=== PATIENT | female | born 1950 | race Caucasian/White ===

== ENCOUNTER 2017-12-27 19:00 | Outpatient (CLI) | payer MEDICARE, BC | END 2017-12-27 23:59 | disposition home or self-care (01) | LOC: D.MAMMO 19:00 | DX: Z12.31 Encounter for screening mammogram for malignant neoplasm of breast (principal) ==

== ENCOUNTER → 2018-02-22 19:58 | Outpatient (CLI) | payer MEDICARE, BC | END | disposition home or self-care (01) | LOC: D.MAMMO 10:00 | DX: R92.8 Other abnormal and inconclusive findings on diagnostic imaging of breast (principal) ==

== ENCOUNTER 2019-11-09 16:19 | Inpatient (IN) | payer MEDICARE, BC ==
[~2019-11-09] VITALS: Ht 157.5 cm; Wt 64.4 kg
[2019-11-28] MEDS ORDERED: LIPITOR20 MG PO (11:23)
[2019-11-28] MEDS ORDERED: tumeric PO (11:24)
[2019-11-28] MEDS ORDERED: VITAMIN D3 PO (11:25)
[2019-11-28] MEDS ORDERED: LUTEIN20 MG PO (11:25)
[2019-11-28] MEDS ORDERED: ASCORBIC ACID500 MG PO (11:25)
[2019-11-28] MEDS ORDERED: GLUCOSAMINE HC500 MG PO (11:37)
[2019-11-28] MEDS ORDERED: CHONDROITIN PO (11:41)
[2019-11-29 09:53] LABS: BILIRUBIN NEGATIVE (NEGATIVE); KETONE NEGATIVE (NEGATIVE); NITRITE NEGATIVE (NEGATIVE); UROBILINOGEN NORMAL (NORMAL)
[2019-11-29 09:54] LABS: EOSINOPHILS 2.4 % (0-7); HEMATOCRIT 36.4 % (36.0-48.0); HEMOGLOBIN 12.3 g/dL (12-16); LYMPHOCYTES 37.9 % (15-50); MCH 32.5 pg (26.0-34.0); MCHC 33.8 g/dL (31.0-37.0); MONOCYTES 11.5 % (2-11); NEUTROPHILS 47.2 % (40-80); PLATELET COUNT 259 10x3/uL (130-400); RBC 3.79 10x6/uL (4.00-5.40); RDW 12.1 % (11.5-14.5); WBC 5.9 10x3/uL (4.8-10.8)
[2019-11-29 09:55] LABS: INR 0.98 (0.85-1.17)
[2019-11-29 10:10] LABS: CALC OSMOLALITY 276 mosm/kg (275-300); CARBON DIOXIDE 27.6 mmol/L (21.0-32.0); CHLORIDE - SERUM 103 mmol/L (98-107); CREATININE - SERUM 0.8 mg/dL (0.6-1.3); GLUCOSE 83 mg/dL (74-106); POTASSIUM - SERUM 4.3 mmol/L (3.5-5.1); SODIUM 138 mmol/L (136-145); UREA NITROGEN 19 mg/dL (7-18); eGFR NON AFRICAN AMERICAN 75 mL/min (90-120)
[2019-12-05] VITALS (12 sets, daily range): BP systolic 108–138; BP diastolic 35–102; BMI 24.7; BMI 26.0
--- NOTE | 2019-12-05 11:42 | NUR ---
THROUGH TRAFFIC KEPT TO A MINIMUM. HIBALCENS AND ALCOHOL USED TO CLEAN BEFORE PREPPING. STERILE GOWNED AND GLOVED TO CHLORAPREP. PADDED NON OPERATIVE LEG WITH PINK PADS BEFORE SECURING TO LEG KENNY.
--- NOTE | 2019-12-05 14:30 | NUR ---
PT AND IN ROOM. VS SIGNS STABLE. RIGHT HIP DRESSING CDI. CL IN REACH. BED ALARM ON. WCTM
--- NOTE | 2019-12-05 17:22 | MORECARE ---
CASE MANAGEMENT DISCHARGE SUMMARY PATIENT: JUAN GONZALEZ UNIT: [id number] ADM DATE: 12/05/19 AGE: 69 : 49 SEX: F ROOM/BED: D.1211 AUTHOR: REBECCA VALENTIN PHYSICIAN: REFERRING PHYSICIAN: BRUNILDA CARRASCO DO DATE OF SERVICE: 12/05/19 Discharge Plan Patient Name: JUAN GONZALEZ Facility: [facility]:[place] : 1950 Planned Disposition: Anticipated Discharge Date: Discharge Date: Expected LOS: Initial Reviewer: [email or web address] Initial Review Date: 12/05/2019 Generated: 12/05/19 6:21 pm Patient Name: JUAN GONZALEZ Page [id number] at 1722 All edits/amendments must be made on the electronic document DICTATION DATE: 12/05/191720 STUDENT SERVICES VICE PRESIDENT: ANDREW 12/05/19 172 RPT#: [id number] DC DATE: STATUS: ADM IN [facility] [address] [place] [address] END OF REPORT
--- NOTE | 2019-12-05 17:30 | MORECARE ---
CASE MANAGEMENT DISCHARGE SUMMARY PATIENT: JUAN GONZALEZ UNIT: [id number] ADM DATE: 12/05/19 AGE: 69 : 49 SEX: F ROOM/BED: D.1211 AUTHOR: REBECCA VALENTIN PHYSICIAN: REFERRING PHYSICIAN: BRUNILDA CARRASCO DO DATE OF SERVICE: 12/05/19 Discharge Plan Patient Name: JUAN GONZALEZ [facility] : 1950 Planned Disposition: Anticipated Discharge Date: Discharge Date: Expected LOS: Initial Reviewer: [email or web address] Initial Review Date: 12/05/2019 Generated: 12/05/19 6:30 pm Last DP export: 12/05/19 4:22 pm Patient Name: JUAN GONZALEZ Page 64012 at 1730 All edits/amendments must be made on the electronic document DICTATION DATE: 12/05/191729 INDUSTRIAL HEALTH ENGINEER: ANDREW 12/05/191729 RPT#: [id number] DC DATE: STATUS: ADM IN [facility] [address] [place] [address] END OF REPORT
--- NOTE | 2019-12-05 17:49 | MORECARE ---
CASE MANAGEMENT DISCHARGE SUMMARY PATIENT: JUAN MILLAN UNIT: [id number] ADM DATE: 12/05/19 AGE: 69 : 49 SEX: F ROOM/BED: D.1211 AUTHOR: REBECCA VALENTIN PHYSICIAN: REFERRING PHYSICIAN: BRUNILDA CARRASCO DO DATE OF SERVICE: 12/05/19 Discharge Plan Patient Name: JUAN MILLAN Facility: [facility]:[place] : 1950 Planned Disposition: Anticipated Discharge Date: Discharge Date: Expected LOS: Initial Reviewer: [email or web address] Initial Review Date: 12/05/2019 Generated: 12/05/19 6:48 pm DCP- Discharge Planning Updated by [email or web address]: Ghada Apodaca on 12/05/19 4:[address] CM met with patient's spouse, Moni Millan ([phone]), for DC plans. (patient is drowsy). Per spouse the patient will utilize OP therapy, on [address], [place] (has used in the past). PCP: Dr. Landaverde. Pharmacy: [facility]. DME: Has a RW at home. CM discussed Other services, ie: HHS, Rehab, SNF. CM will revisit with patient when she is more alert. Last DP export: 12/05/19 4:30 pm Patient Name: JUAN MILLAN Page [id number] at 1748 All edits/amendments must be made on the electronic document DICTATION DATE: 12/05/191748 DIE CASTING MACHINE OPERATOR: ANDREW 12/05/191748 RPT#: [id number] DC DATE: STATUS: ADM IN [facility] [address] [place] [address] END OF REPORT
--- NOTE | 2019-12-05 20:00 | NUR ---
ALERT RESTING IN BED AT BEDSIDE, DENIES PAIN OR NEEDS AT THIS TIME, CALL LIGHT IN REACH
[2019-12-06 00:54] VITALS: BP 104/50
[2019-12-06 06:09] VITALS: BP 93/53
[2019-12-06 06:32] LABS: BASOPHILS 0.1 % (0-2); EOSINOPHILS 0 % (0-7); HEMATOCRIT 31.5 % (36.0-48.0); HEMOGLOBIN 10.5 g/dL (12-16); IMMATURE GRANULOCYTES 0.2 % (0-5); LYMPHOCYTES 14.4 % (15-50); MCH 31.7 pg (26.0-34.0); MCHC 33.3 g/dL (31.0-37.0); MCV 95.2 fL (80.0-100.0); MEAN PLATELET VOLUME 9.2 fL (7.4-10.4); MONOCYTES 9.6 % (2-11); NEUTROPHILS 75.7 % (40-80); PLATELET COUNT 227 10x3/uL (130-400); RBC 3.31 10x6/uL (4.00-5.40); RDW 12.1 % (11.5-14.5); WBC 11.2 10x3/uL (4.8-10.8)
[2019-12-06 07:09] LABS: ANION GAP 10.7 mmol/L (8-16); CALCIUM 8.1 mg/dL (8.5-10.1); CARBON DIOXIDE 26.6 mmol/L (21.0-32.0); CREATININE - SERUM 0.9 mg/dL (0.6-1.3); POTASSIUM - SERUM 4.3 mmol/L (3.5-5.1)
--- NOTE | 2019-12-06 07:59 | OP ---
PATIENT NAME: JUAN MILLAN MEDICAL RECORD: [id number] :[birth year] LOCATION:D. D.1211 ADMISSION DATE:12/05/19 SURGEON: TOÑO CARRASCO DO DATE OF OPERATION: 12/05/2019 PROCEDURE PERFORMED: Right total hip arthroplasty. PREOPERATIVE DIAGNOSIS: Right hip osteoarthritis. POSTOPERATIVE DIAGNOSIS: Right hip osteoarthritis. INDICATIONS: Ms. Millan is a 69-year-old female who has had right hip pain for quite some time. She has tried all manner of nonoperative treatment to no avail. She wanted something done surgically. She is tired of it affecting her activities of daily living and decided she wanted total hip done. She is aware of the risks including infection, bleeding, damage to nerves and vessels in the area, continued pain, leg length discrepancy, blood clots, , failure of implants, failure of hardware, fracture, and heterotopic ossification which she does have a family history of. Her mom did after hip fracture. I told her I would be very careful and I would irrigate well and remove all the bone marrow as it was brought out of the femoral canal. She is aware of all that and signed a consent. SURGEON: Toño Carrasco DO DESCRIPTION OF PROCEDURE: The patient taken to the operative suite, laid in supine position, given general anesthetic and intubated, and given a gram of Ancef and 80 mg of gentamicin preoperatively. She was then moved over to the [place] table. The right lower extremity was then prepped and draped in sterile fashion. A time-out was performed and everyone was in agreeance with the correct side, site, patient, and procedure. We began by dissecting down over the tensor fascia saundra muscle to the fascia and took the fascia anteriorly, muscle belly posteriorly. I then opened up the rectus interval. The rectus was then taken medially, tensor fascia saundra laterally. I made careful dissection down to the hip capsule. The ascending branch of the lateral femoral circumflex was encountered, tied off and coagulated with Aquamantys, and then cut. I then opened up the capsule and tagged it. I put Hohmann's around the neck of the femur. I made a cut. I then removed the head and neck of the femur. I then put in the Charnley. I then removed the labrum and the pulvinar from the acetabulum. I then began reaming with 44, went up to 48, impacted a 48 cup, and put the liner in. I then exposed the femur, put in the canal finder and cookie cutter, and broached up to a 13 and trialed a -6. The -6 fit very well and it had equal lengths to the left hip, the lesser trochanter. This was then dislocated and the trial was removed. I irrigated very well and then put in the actual 13 stem. I then impacted on the dual mobility head and reduced the hip. The hip was then reduced and x-rays were taken. There was no fracture seen. The femur stem fit well and the AP pelvis, leg lengths were equal. The site was then irrigated with 10% povidone-iodine and 500 mL normal saline solution and sat for 3 minutes. I then irrigated out with over a liter of normal saline. This was then done by Aaron Carlos, certified surgical desk assistant. He put in Tadeo powder and vancomycin and tobramycin powder. I then closed the fascia with #1 Vicryl, first in a piunsq-of-dwcda, then a running locking stitch and closed the skin with 2-0 Vicryl in inverted interrupted fashion, 4-0 Monocryl ran on the skin, and Prineo glue placed on the skin and then she was dressed with Telfa and Tegaderm. She was awakened and taken to OPERATIVE REPORT [id number] JUAN MILLAN recovery in stable condition. BLOOD LOSS: Approximately 200 mL. COMPLICATIONS: None. NTS:[id number] Voice Confirmation ID: [id number] DOCUMENT ID: [id number] TOÑO CARRASCO DO at 0759 CC: [id number] DICTATION DATE: 12/05/19 1216 SEAL DELIVERY VEHICLE OFFICER: 12/05/19 1852 ADM IN [facility] [address] [place] [address]
[2019-12-06 08:16] VITALS: BP 112/57
[2019-12-06 11:47] VITALS: BP 132/78
[2019-12-06 13:34] VITALS: Ht 157.5 cm; Wt 64.4 kg
[2019-12-06 15:36] VITALS: BP 122/57
--- NOTE | 2019-12-06 18:11 | NUR ---
PATIENT STATED SHE IS FEELING LESS NAUSEATED AND DOESNT WANT TO TAKE ANY REGLAN RIGHT NOW. WOULD LIKE JUST TYLENOL FOR PAIN BEFORE BED. WANTS TO KNOW IF SHE IS ABLE TO GET ANYTHING TO HELP HER SLEEP TONIGHT. EXPLAINED I WOULD HAVE TO SPEAK TO THE PHYSICIAN ABOUT IT. VERBALIZED UNDERSTANDING. IV INTACT. ZOFRAN DRIP INFUSING. BSCDS ON AND WORKING. FAMILY AT BEDSIDE. CALL LIGHT WITHIN REACH.
--- NOTE | 2019-12-06 18:15 | NUR ---
NEW ORDERS FOR SLEEP MEDS PRESCRIBED BY DR. CARRASCO. NOTIFIED PATIENT. NO COMPLAINTS. CALL LIGHT WITHIN REACH.
[2019-12-06 20:00] VITALS: BP 126/63
--- NOTE | 2019-12-06 20:00 | NUR ---
ALERT RESTING IN BED, DENIES PAIN OR NEEDS AT THIS TIME, SEE SHIFT ASSESSMENT, CALL LIGHT IN REACH
[2019-12-07 04:00] VITALS: BP 116/52
[2019-12-07 07:49] LABS: BASOPHILS 0.5 % (0-2); EOSINOPHILS 0.8 % (0-7); HEMATOCRIT 29.5 % (36.0-48.0); HEMOGLOBIN 9.6 g/dL (12-16); IMMATURE GRANULOCYTES 0.2 % (0-5); LYMPHOCYTES 24.1 % (15-50); MCH 31.6 pg (26.0-34.0); MCHC 32.5 g/dL (31.0-37.0); MEAN PLATELET VOLUME 9.4 fL (7.4-10.4); MONOCYTES 12.7 % (2-11); NEUTROPHILS 61.7 % (40-80); PLATELET COUNT 213 10x3/uL (130-400); RBC 3.04 10x6/uL (4.00-5.40); RDW 12.6 % (11.5-14.5); WBC 8.9 10x3/uL (4.8-10.8)
[2019-12-07 07:52] LABS: ANION GAP 10.6 mmol/L (8-16); CALCIUM 7.9 mg/dL (8.5-10.1); CARBON DIOXIDE 26.4 mmol/L (21.0-32.0); CREATININE - SERUM 0.9 mg/dL (0.6-1.3)
[2019-12-07 07:56] VITALS: BP 129/54; BP 131/60
[2019-12-07] MEDS ORDERED: ELIQUIS2.5 MG PO (08:25)
[2019-12-07] MEDS ORDERED: HYDROCODON-ACE1 EAC7 PO (08:25)
[2019-12-07] MEDS ORDERED: ZOFRAN ODT4 MG/UDTAB PO (08:26)
[2019-12-07] MEDS ORDERED: KEFLEX500 MG PO (08:26)
--- NOTE | 2019-12-07 08:34 | NUR ---
PT ALERT X 4. BREATH SOUNDS CLEAR BILAT. IV TO LEFT HAND PATENT, DRESSING CDI. DRESSING TO RIGHT HIP CDI, ICE PACK IN USE. PT REPORTING PAIN OF 3/10, WILL CONTINUE TO MONITOR. BED LOW, CALL LIGHT IN REACH. NO OTHER NEEDS AT THIS TIME.
--- NOTE | 2019-12-07 11:51 | MORECARE ---
CASE MANAGEMENT DISCHARGE SUMMARY PATIENT: JUAN MILLAN UNIT: [id number] ADM DATE: 12/05/19 AGE: 69 : 49 SEX: F ROOM/BED: D.1211 AUTHOR: REBECCA VALENTIN PHYSICIAN: REFERRING PHYSICIAN: BRUNILDA CARRASCO DO DATE OF SERVICE: 12/07/19 Discharge Plan Patient Name: JUAN MILLAN Facility: [facility]:[place] : 1950 Planned Disposition: Home Anticipated Discharge Date: 12/07/19 Discharge Date: Expected LOS: 2 Initial Reviewer: [email or web address] Initial Review Date: 12/07/2019 Generated: 12/07/19 12:51 pm DCP- Discharge Planning Updated by [email or web address]: Ghada Apodaca on 12/05/19 4:[address] CM met with patient's spouse, Moni Millan ([phone]), for DC plans. (patient is drowsy). Per spouse the patient will utilize OP therapy, on [address], [place] (has used in the past). PCP: Dr. Landaverde. Pharmacy: [facility]. DME: Has a RW at home. CM discussed Other services, ie: HHS, Rehab, SNF. CM will revisit with patient when she is more alert. External Providers External Provider: [facility] Next Contact Date: Service Request Date: Service Type: Resolution: Reviewer: Comments: Last DP export: 12/05/19 4:49 pm Patient Name: JUAN MILLAN Page [phone] at 1151 All edits/amendments must be made on the electronic document DICTATION DATE: 12/07/19 1151 BLINDSTITCH LAPEL PADDER: ANDREW 12/07/19 1151 RPT#: [id number] DC DATE: STATUS: ADM IN [facility] [address] [place] [address] END OF REPORT
[2019-12-07 11:56] VITALS: BP 122/57
--- NOTE | 2019-12-07 11:59 | MORECARE ---
CASE MANAGEMENT DISCHARGE SUMMARY PATIENT: JUAN MILLAN UNIT: [id number] ADM DATE: 12/05/19 AGE: 69 : 49 SEX: F ROOM/BED: D.1211 AUTHOR: REBECCA VALENTIN PHYSICIAN: REFERRING PHYSICIAN: BRUNILDA CARRASCO DO DATE OF SERVICE: 12/07/19 Discharge Plan Patient Name: JUAN MILLAN Facility: [facility]:[place] : 1950 Planned Disposition: Home Anticipated Discharge Date: 12/07/19 Discharge Date: Expected LOS: 2 Initial Reviewer: [email or web address] Initial Review Date: 12/07/2019 Generated: 12/07/19 12:59 pm DCP- Discharge Planning Updated by [email or web address]: Ghada Apodaca on 12/05/19 4:[address] CM met with patient's spouse, Moni Millan ([phone]), for DC plans. (patient is drowsy). Per spouse the patient will utilize OP therapy, on [address], [place] (has used in the past). PCP: Dr. Landaverde. Pharmacy: [facility]. DME: Has a RW at home. CM discussed Other services, ie: HHS, Rehab, SNF. CM will revisit with patient when she is more alert. DCPIA - Discharge Planning Initial Assessment Updated by [email or web address]: Afshan Thompson on 12/07/19 11:56 am * Is the patient Alert and Oriented? Yes * How many steps to enter\exit or inside your home? * PCP Dr. Landaverde * Pharmacy [facility], [address] * Preadmission Environment Home with Family * ADLs Independent * Equipment Bedside Commode Cane Grab Bars Rolling Walker Shower Chair Wheelchair * List name and contact numbers for known caregivers / representatives who currently or will assist patient after discharge: Moni Millan, spouse, * Verbal permission to speak to the caregivers and representatives has been obtained from the patient. Yes * Community resources currently utilized None * Additional services required to return to the preadmission environment? Yes * Can the patient safely return to the preadmission environment? Yes * Has this patient been hospitalized within the prior 30 days at any hospital? No Last DP export: 12/07/19 10:52 am Patient Name: JUAN MILLAN Page [id number] at 1159 All edits/amendments must be made on the electronic document DICTATION DATE: 12/07/19 1159 TRAINING AND DEVELOPMENT MANAGER: ANDREW 12/07/19 1159 RPT#: [id number] DC DATE: STATUS: ADM IN [facility] [address] [place] [address] END OF REPORT
--- NOTE | 2019-12-07 12:06 | MORECARE ---
CASE MANAGEMENT DISCHARGE SUMMARY PATIENT: JUAN MILLAN UNIT: [id number] ADM DATE: 12/05/19 AGE: 69 : 49 SEX: F ROOM/BED: D.1211 AUTHOR: REBECCA VALENTIN PHYSICIAN: REFERRING PHYSICIAN: BRUNILDA CARRASCO DO DATE OF SERVICE: 12/07/19 Discharge Plan Patient Name: JUAN MILLAN Facility: [facility]:[place] : 1950 Planned Disposition: Home Anticipated Discharge Date: 12/07/19 Discharge Date: Expected LOS: 2 Initial Reviewer: [email or web address] Initial Review Date: 12/07/2019 Generated: 12/07/19 1:05 pm Comments DCP- Discharge Planning Updated by [email or web address]: Afshan Thompson on 12/07/19 11:[address] Patient Name: JUAN MILLAN Admission Status: Elective Accout number: [id number] Admission Date: 12-05-2019 : 1950 Admission Diagnosis:UNILATERAL PRIMARY OSTEOARTHRITIS, RIGHT HIP Attending: BRUNILDA CARRASCO Current LOS: 2 Anticipated DC Date: 12-07-2019 Planned Disposition: Home with Outpatient Therapy Primary Insurance: MEDICARE A & B Discharge Planning Comments: After obtaining verbal consent, CM met with patient and spouse to discuss discharge planning / needs. Patient states her plan is to discharge to home with Outpatient therapy at [facility] on [address] [address]. Patient signed a [place] form for therapy. States home environment is safe. States spouse will transport her home upon hospital DC. Denies any other discharge planning needs at this time. CM explained and patient signed DC IMM. Copies on chart. CM called [facility] with referral. Spoke with Roxy. Appointment scheduled for Wednesday 09:30. CM instructed patient and spouse on appointment. Both verbalized understanding and satisfaction with DC plan. CM faxed records and order to [facility] as requested. CM will continue to follow and assist as needed with discharge planning / needs. Vending Machine Attendant: Afshan Thompson DCP- Discharge Planning Updated by [email or web address]: Ghada Apodaca on 12/05/19 4:[address] CM met with patient's spouse, Moni Millan ([phone]), for DC plans. (patient is drowsy). Per spouse the patient will utilize OP therapy, on [address], [place] (has used in the past). PCP: Dr. Landaverde. Pharmacy: [facility]. DME: Has a RW at home. CM discussed Other services, ie: HHS, Rehab, SNF. CM will revisit with patient when she is more alert. DCPIA - Discharge Planning Initial Assessment Updated by [email or web address]: Afshan Thompson on 12/07/19 11:56 am * Is the patient Alert and Oriented? Yes * How many steps to enter\exit or inside your home? * PCP Dr. Landaverde * Pharmacy [facility], [address] * Preadmission Environment Home with Family * ADLs Independent * Equipment Bedside Commode Cane Grab Bars Rolling Walker Shower Chair Wheelchair * List name and contact numbers for known caregivers / representatives who currently or will assist patient after discharge: Moni Millan, spouse, * Verbal permission to speak to the caregivers and representatives has been obtained from the patient. Yes * Community resources currently utilized None * Additional services required to return to the preadmission environment? Yes * Can the patient safely return to the preadmission environment? Yes * Has this patient been hospitalized within the prior 30 days at any hospital? No Coverage Notice Reviewer: [email or web address] Thompson Notice Issued Date-Time: 12/07/2019 11:35 Notice Type: Patient Choice Letter Notice Delivered To: Patient Relationship to Patient: Self Method Consultant Name: Delivery Method: HAND - Hand Delivered Amara Days: Prior Verbal Notification: Recipient Understood Notice: Yes Recipient Signature: Yes Med Rec Note Co-signed by Attending: Coverage Notice Comment: Reviewer: [email or web address] Tohmpson Notice Issued Date-Time: 12/07/2019 11:40 Notice Type: IM Discharge Notice Notice Delivered To: Patient Relationship to Patient: Self Method Consultant Name: Delivery Method: HAND - Hand Delivered Amara Days: Prior Verbal Notification: Recipient Understood Notice: Yes Recipient Signature: Yes Med Rec Note Co-signed by Attending: Coverage Notice Comment: Last DP export: 12/07/19 10:59 am Patient Name: JUAN MILLAN Page 25156 at 1206 All edits/amendments must be made on the electronic document DICTATION DATE: 12/07/191205 FLY RAIL OPERATOR: ANDREW 12/07/19 120 RPT#: [id number] DC DATE: STATUS: ADM IN [facility] [address] [place] [address] END OF REPORT
--- NOTE | 2019-12-07 13:59 | NUR ---
DISCHARGE PAPERWORK SIGNED, ALL QUESTIONS ANSWERED. IV TO LEFT HAND DC'D, TIP INTACT. ESCORTED OUT VIA WHEELCHAIR.
== END 2019-12-07 13:59 | disposition home or self-care (01) | DRG 470 ==
LOC: D.SDCHOLD 11-29 10:00 → D.M3 12-05 07:55 → D.SDCHOLD 12-05 10:00 → D.M3 12-05 13:45
PROVIDERS: Family Medicine; ADMIT Orthopaedic Surgery; ATTEND Orthopaedic Surgery
PROC: 0SR90JZ Replacement of Right Hip Joint with Synthetic Substitute, Open Approach (ICD-10-PCS; principal; 2019-12-05 10:00)
DX: M16.11 Unilateral primary osteoarthritis, right hip (principal); E78.5 Hyperlipidemia, unspecified; K59.00 Constipation, unspecified; R11.0 Nausea

== ENCOUNTER → 2019-11-10 03:32 | Outpatient (CLI) | payer MEDICARE, BC | END | disposition home or self-care (01) | LOC: D.LABREF 03:32 | PROVIDERS: ATTEND Orthopaedic Surgery | DX: M16.11 Unilateral primary osteoarthritis, right hip (principal) ==